=== PATIENT | female | born 1985 | race Hispanic/Latino ===

== ENCOUNTER → 2020-10-28 16:22 | Outpatient (CLI) | payer OTHER, SELFPAY ==
[2020-10-28 16:55] LABS: Basophils Absolute Auto 0 /uL (0-100); Basophils Percent Auto 0.5 % (0-2); Eosinophils Absolute Auto 300 /uL (0-450); Eosinophils Percent Auto 3.7 % (2-4); Hematocrit 39.3 % (36-46); Hemoglobin 13.1 g/dL (12.0-16.0); Lymphocytes Absolute Auto 1400 /uL (1100-4500); Lymphocytes Percent Auto 16.5 % (25-40); Mean Corpuscular HGB Conc 33.4 % (30-36); Mean Corpuscular Hemoglobin 27.9 PG (26-34); Mean Corpuscular Volume 83.6 fL (80-100); Monocytes Absolute Auto 300 /uL (0-900); Monocytes Percent Auto 4.1 % (3-14); Neutrophils Absolute Auto 6300 /uL (1500-7000); Neutrophils Percent Auto 75.2 % (50-75); Platelet Count 295 X10^3/uL (150-400); Red Blood Cell Count 4.71 X10^6/uL (4.0-5.2); Red Cell Distribution Width 19.7 % (11.6-14.8); White Blood Cell Count 8.3 X10^3/uL (4.5-11.0)
[2020-10-28 16:58] LABS: Add Manual Diff / Slide Review SLIDE REVIEW
[2020-10-28 17:07] LABS: Alanine Aminotransferase 18 IU/L (<35); Albumin 4.7 g/dL (3.5-5.0); Albumin Globulin Ratio 1.2 (1.0-2.8); Alkaline Phosphatase 61 U/L (38-126); Aspartate Aminotransferase 23 IU/L (14-36); BUN Creatinine Ratio 22.4 (6-22); Bilirubin Total 0.4 mg/dL (0.2-1.3); Blood Urea Nitrogen 15 mg/dL (7-17); Calcium 9.7 mg/dL (8.4-10.2); Carbon Dioxide 26 mmol/L (22-32); Chloride 103 mmol/L (98-107); Estimated Glomerular Filt Rate > 60.0 mL/min (>60); Glucose 91 mg/dL (70-100); HEMOLYSIS < 15 (0-50); Potassium 4.1 mmol/L (3.4-5.1); Sodium 137 mmol/L (137-145); Total Protein 8.7 g/dL (6.3-8.2)
[2020-10-28 17:32] LABS: Anisocytosis 1+; Microcytosis 1+
[2020-10-28 17:34] LABS: HEMOLYSIS 16 (0-50); Iron 68 ug/dL (37-170)
[2020-10-28 17:42] LABS: Ferritin 32 ng/mL (6-137)
[2020-10-28 17:45] LABS: Percent Iron Saturation 18 % (15-50); Total Iron Binding Capacity 375 ug/dL (265-497); Transferrin 285 mg/dL (206-381)
[2020-11-01 14:43] LABS: Factor VIII Activity, Clotting 227 % (56-140)
== END ==
PROVIDERS: PCP Family Medicine; Referring Provider Internal Medicine Hematology & Oncology; Visit Provider Internal Medicine Hematology & Oncology
DX: D50.9 Iron deficiency anemia, unspecified (principal); R79.1 Abnormal coagulation profile
CPT/HCPCS: 36415; 80053; 82728; 83540; 83550; 85025; 85240

== ENCOUNTER 2020-10-30 19:16 | Emergency (ER) | payer OTHER, SELFPAY ==
[2020-10-30 19:25] VITALS: BP 125/80; PULSE 90; RESP 17; TEMP 37.1; O2SAT 100; BMI 27.4
[2020-10-30] MEDS: ONDANSETRON 4 MG/2 ML INJ IV ×2 (20:01→21:23)
[2020-10-30] MEDS: OXYCODONE/ACETAMINOPHEN 5/325 TABLET 1 TAB PO (20:02)
[2020-10-30] MEDS: SODIUM CHLORIDE 0.9% 1,000 ML 1000 ML IV (20:02)
--- NOTE | 2020-10-30 20:14 | ED_ITS ---
HPI - General Adult General Chief complaint: Vaginal Bleeding Stated complaint: heavy period/ large clots Time Seen by Provider: 10/30/20 19:46 Source: patient Mode of arrival: Ambulatory Limitations: no limitations History of Present Illness HPI narrative: 35-year-old woman now 2 months post endometrial ablation for heavy vaginal bleeding presents with heavy vaginal bleeding. She notes that she has had an episode of bleeding approximately 3 weeks ago that was similar to her pre ablation bleeding. She started bleeding approximately 5 days ago and is having increasing clots worse in the last 48 hours. She does bring in some pictures with some hand thighs clots that she has been passing today. She notes mild headache, significant fatigue and general malaise as the bleeding is continuing. Related Data Home Medications Medication Instructions Recorded Confirmed acetaminophen [Tylenol] 325 mg PO PRN PRN 09/23/20 09/23/20 ibuprofen [Motrin] 600 mg PO Q6H PRN 09/23/20 09/23/20 Previous Rx's Medication Instructions Recorded medroxyprogesterone 30 mg PO DAILY #74 tab 10/30/20 Allergies Allergy/AdvReac Type Severity Reaction Status Date / Time iron dextran complex Allergy Severe I STOP Verified 08/31/20 15:37 [IRON DEXTRAN COMPLEX] BREATHING, HIVES nickel [NICKEL] Allergy Mild LOCALIZED Verified 08/31/20 15:37 RASH Review of Systems Review of Systems Narrative: Pertinent positive and negative findings as per HPI Remainder of review of systems is otherwise unremarkable for Constitutional: Fevers, chills, ENT: No sore throat, neck pain, ear pain CV: Chest pain, palpitations, Respiratory: Cough, wheeze, dyspnea GI: Nausea, vomiting, diarrhea, : Dysuria, hematuria, flank pain Patient History Medical History (Updated 10/30/20 @ 21:01 by Marilee Mata MD) Depression Eczema Migraine Post endometrial ablation syndrome PTSD (post-traumatic stress disorder) Surgical History History of vaginal delivery Family History Other Family history in first degree relatives is unremarkable Social History Smoking Status: Never smoker alcohol intake: never substance use type: hallucinogens (once a month, occasinally) Smoking Status: Never smoker alcohol intake frequency: a few times a month Substance Use Type: does not use Exam Narrative Exam Narrative: General: Healthy appearing, mild malaise but Able to give a complete and coherent history. Well-nourished well-developed HEENT: Moist mucous membranes, normal sclera with reactive pupils, Respiratory: Lungs are clear to auscultation, no wheezing no rales no rhonchi. Full and symmetrical air movement Cardiac: Mild tachycardia Regular rate and rhythm no murmurs no bruits Abdomen: Soft, minor suprapubic tenderness, good bowel tones, no flank pain Skin: Warm and dry, no rashes Neurologic: Grossly neurologically intact with no obvious asymmetries or abnormalities Extremities: No trauma, well perfused Psych: Cooperative, appropriate insight and affect Initial Vital Signs Initial Vital Signs: Vital Signs Temperature 98.7 F 10/30/20 19:25 Pulse Rate 90 10/30/20 19:25 Respiratory Rate 17 10/30/20 19:25 Blood Pressure 125/80 10/30/20 19:25 Pulse Oximetry 100 10/30/20 19:25 Course Orders Ordered: ED Orders 10/30/20 19:45 Complete Blood Count AUTO DIFF Stat Discontinued Medications Sodium Chloride (Normal Saline 0.9%) 1,000 mls @ 1,000 mls/hr IV BOLUS ONE Stop: 10/30/20 20:38 Last Infusion: 10/30/20 21:04 Dose: 0 mls/hr Documented by: Admin: 10/30/20 20:02 Dose: 1,000 mls/hr Documented by: DONNA Tranexamic Acid 1,000 mg/ (Sodium Chloride) 100 mls @ 400 mls/hr IV NOW ONE Stop: 10/30/20 20:39 Last Infusion: 10/30/20 21:23 Dose: 0 mls/hr Documented by: Admin: 10/30/20 21:00 Dose: 400 mls/hr Documented by: DONNA Medroxyprogesterone Acetate (Medroxyprogesterone Acetate 10 Mg Tablet) 40 mg PO NOW ONE Stop: 10/30/20 20:47 Last Admin: 10/30/20 21:23 Dose: 40 mg Documented by: DONNA Ondansetron HCl (Ondansetron 4 Mg/2 Ml Inj) 4 mg IV NOW ONE Stop: 10/30/20 19:54 Last Admin: 10/30/20 20:01 Dose: 4 mg Documented by: DONNA Ondansetron HCl (Ondansetron 4 Mg/2 Ml Inj) 4 mg IV NOW ONE Stop: 10/30/20 21:17 Last Admin: 10/30/20 21:23 Dose: 4 mg Documented by: DONNA Oxycodone/Acetaminophen (Oxycodone/Acetaminophen 5/325 Tablet) 1 tab PO NOW ONE Stop: 10/30/20 19:54 Last Admin: 10/30/20 20:02 Dose: 1 tab Documented by: DONNA Oxycodone/Acetaminophen (Oxycodone/Apap 5/325 Prepack) 1 bottle MISC SEEINSTR ONE Stop: 10/30/20 21:02 Last Admin: 10/30/20 21:23 Dose: 1 bottle Documented by: DONNA Progesterone (Progesterone, Micronized 100 Mg Capsule) 40 mg PO DAILY ONE Stop: 10/30/20 20:40 Vital Signs Vital signs: Vital Signs - 8 hr 10/30/20 19:25 10/30/20 20:19 10/30/20 20:30 Temperature 98.7 F Pulse Rate 90 79 81 Respiratory Rate 17 Blood Pressure 125/80 114/61 Pulse Oximetry 100 98 100 10/30/20 21:00 10/30/20 21:30 Temperature Pulse Rate 78 78 Respiratory Rate Blood Pressure 114/74 120/79 Pulse Oximetry 98 98 Medical Decision Making Medical Records Medical records reviewed: Yes I reviewed the patient's medical records. Lab Data Lab results reviewed: Yes I reviewed the patient's lab results. Lab results narrative: Negative test Result diagrams: 10/30/20 19:45 Labs: Lab Results 10/30/20 Range/Units 19:45 WBC 7.1 (4.5-11.0) X10^3/uL RBC 4.19 (4.0-5.2) X10^6/uL Hgb 11.8 L (12.0-16.0) g/dL Hct 35.0 L (36-46) % MCV 83.5 (80-100) fL MCH 28.1 (26-34) PG MCHC 33.7 (30-36) % RDW 19.6 H (11.6-14.8) % Plt Count 253 (150-400) X10^3/uL Neut % (Auto) 67.6 (50-75) % Lymph % (Auto) 23.6 L (25-40) % Weld % (Auto) 4.4 (3-14) % Eos % (Auto) 3.7 (2-4) % Baso % (Auto) 0.7 (0-2) % Neut # (Auto) 4800 (1891-3471) /uL Lymph # (Auto) 1700 (8447-7086) /uL Weld # (Auto) 300 (0-900) /uL Eos # (Auto) 300 (0-450) /uL Baso # (Auto) 0 (0-100) /uL RBC Morphology Not Reportable Anisocytosis 2+ H Schistocytes 1+ H Point of Care Testing Test Results Negative Urine Dip Bedside Urine Glucose Negative Bedside Urine Bilirubin - Negative Bedside Urine Ketone +++ 80 Urine Specific [place] 1.030 Bedside Urine Occult Blood +++ Bedside Urine pH 6.0 Bedside Urine Protein +/- 15 Bedside Urine Urobilinogen - Negative Bedside Urine Nitrite - Negative Bedside Urine Leukocytes - Negative Esterase Point of care testing: Point of Care Testing Test Results Negative Urine Dip Bedside Urine Glucose Negative Bedside Urine Bilirubin - Negative Bedside Urine Ketone +++ 80 Urine Specific [place] 1.030 Bedside Urine Occult Blood +++ Bedside Urine pH 6.0 Bedside Urine Protein +/- 15 Bedside Urine Urobilinogen - Negative Bedside Urine Nitrite - Negative Bedside Urine Leukocytes - Negative Esterase MDM Narrative Medical decision making narrative: Heavy vaginal bleeding post endometrial ablation in August with history of anemia followed by Hematology and dropping H&H from 13.1-11.8 and 39.3-35.0 Feeling significantly better after a single Percocet, Zofran and a L of fluid. Care is reviewed with Dr. Selina Mendoza OBGYN. She suggested IV TXA for single dose and then a medroxyprogesterone taper. test was negative today and there is no other indication of pathologic reason for her bleeding at this time. 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 Discharge Plan Departure Patient Disposition: Home Clinical Impression: Menometrorrhagia Instructions: DI for Vaginal Bleeding Activity Restrictions/Additional Instructions: Thank you for coming in today I am so sorry your ablation does not seem to have worked. In the emergency room your given nausea medicine, a single Percocet and a liter of fluid and improved nicely. Your given IV TXA to help slow the bleeding tonight and started on a medroxyprogesterone taper. I have given you written instructions for how to com plete this taper over the next 15 days. Your hemoglobin dropped from 13.1-11.8 and your hematocrit dropped from 39.3- 35.0 over these last 2 days. Using 400 mg of ibuprofen (2 [id number] pills) and 1 Tylenol every 6 hours can be very helpful in controlling pain. For severe cramping you can use 1 Percocet as well. Please contact your OBGYN to talk about options for dealing with this recur rent/continuing heavy vaginal bleeding. If you find that you are getting worse, your having palpitations, chest pain feel like your going to pass out or developed fevers or chills please feel free to return to the emergency department Prescriptions: New medroxyprogesterone 10 mg tablet 30 mg PO DAILY Qty: 74 RF: 0 No Action Motrin 300 mg Tablet 600 mg PO Q6H PRN (Reason: Pain (Scale Score 4-6)) RF: 0 acetaminophen [Tylenol] 325 mg Capsule 325 mg PO PRN PRN (Reason: Pain (Scale Score 4-6)) RF: 0 Referrals: Anitra Caldwell DO [Primary Care Provider] -
[2020-10-30 20:19] VITALS: PULSE 79; O2SAT 98
[2020-10-30 20:22] LABS: Basophils Absolute Auto 0 /uL (0-100); Basophils Percent Auto 0.7 % (0-2); Eosinophils Absolute Auto 300 /uL (0-450); Eosinophils Percent Auto 3.7 % (2-4); Hemoglobin 11.8 g/dL (12.0-16.0); Lymphocytes Absolute Auto 1700 /uL (1100-4500); Lymphocytes Percent Auto 23.6 % (25-40); Mean Corpuscular HGB Conc 33.7 % (30-36); Mean Corpuscular Hemoglobin 28.1 PG (26-34); Mean Corpuscular Volume 83.5 fL (80-100); Monocytes Absolute Auto 300 /uL (0-900); Monocytes Percent Auto 4.4 % (3-14); Neutrophils Absolute Auto 4800 /uL (1500-7000); Neutrophils Percent Auto 67.6 % (50-75); Platelet Count 253 X10^3/uL (150-400); Red Blood Cell Count 4.19 X10^6/uL (4.0-5.2); Red Cell Distribution Width 19.6 % (11.6-14.8); White Blood Cell Count 7.1 X10^3/uL (4.5-11.0)
[2020-10-30 20:26] LABS: Add Manual Diff / Slide Review SLIDE REVIEW
[2020-10-30 20:30] VITALS: BP 114/61; PULSE 81; O2SAT 100
[2020-10-30 20:38] LABS: Anisocytosis 2+; Schistocytes 1+
[2020-10-30 21:00] VITALS: BP 114/74; PULSE 78; O2SAT 98
[2020-10-30] MEDS: TRANEXAMIC ACID 1,000 MG in SODIUM CHLORIDE 0.9% 100 ML 400 ML IV (21:00)
[2020-10-30] MEDS: OXYCODONE/APAP 5/325 PREPACK 1 BOTTLE MISC (21:23)
[2020-10-30] MEDS: MEDROXYPROGESTERONE ACETATE 10 MG TABLET 40 MG PO (21:23)
[2020-10-30 21:30] VITALS: BP 120/79; PULSE 78; O2SAT 98
== END 2020-10-30 21:45 | disposition home or self-care (01) ==
PROVIDERS: Emergency Provider Emergency Medicine; PCP Family Medicine
DX: N92.1 Excessive and frequent menstruation with irregular cycle (principal); N99.85 Post endometrial ablation syndrome
CPT/HCPCS: 81003; 81025; 85025; 96361; 96365; 96375; 96376; 99282; 99284; J2405